=== PATIENT | male | born 1990 | race Caucasian/White ===

== ENCOUNTER 2021-01-28 10:38 | Emergency (ER) | payer SELFPAY ==
[~2021-01-28] VITALS: Ht 165.1 cm; Wt 84.0 kg
[2021-01-28 10:43] VITALS: BP 172/101
== END 2021-01-28 11:05 | disposition home or self-care (01) ==
LOC: ER 10:38
DX: Z48.00 Encounter for change or removal of nonsurgical wound dressing (principal); I10 Essential (primary) hypertension; Z98.890 Other specified postprocedural states
CPT/HCPCS: 99281